=== PATIENT | male | born 1955 | race African-American/Black ===

== ENCOUNTER 2018-05-15 12:54 | Emergency (ER) | payer MEDICAID, OTHER ==
[~2018-05-15] VITALS: Ht 182.9 cm; Wt 59.0 kg
[2018-05-15] MEDS ORDERED: LORazepam Inj 2mg/ml 1ml IM ONE (13:30)
[2018-05-15 13:58] VITALS: BP 138/83
[2018-05-15 14:08] LABS: BASOPHILS % (AUTO) 1.8 % (0.0-2.0); EOSINOPHILS % (AUTO) 17.6 % (0.0-3.0); HEMATOCRIT 37.5 % (42.0-52.0); HEMOGLOBIN 11.9 G/DL (14.2-18.0); LYMPHOCYTES % (AUTO) 45.3 % (20.0-45.0); MEAN CORPUSCULAR VOLUME 101 FL (80-99); MONOCYTES % (AUTO) 9.2 % (1.0-10.0); NEUTROPHILS % (AUTO) 26.1 % (45.0-75.0); PLATELET COUNT 326 K/UL (150-450); RED BLOOD COUNT 3.73 M/UL (4.70-6.10); RED CELL DISTRIBUTION WIDTH 13.1 % (11.6-14.8); WHITE BLOOD COUNT 6.6 K/UL (4.8-10.8)
[2018-05-15 14:14] LABS: APPEARANCE,URINE CLEAR; BILIRUBIN, URINE NEGATIVE (NEGATIVE); GLUCOSE, URINE (UA) NEGATIVE (NEGATIVE); KETONES,URINE NEGATIVE (NEGATIVE); LEUKOCYTE ESTERASE ,URINE 3+ (NEGATIVE); NITRITE,URINE NEGATIVE (NEGATIVE); PH,URINE 6 (4.5-8.0); PROTEIN,URINE 3+ (NEGATIVE); UROBILINOGEN,URINE NORMAL MG/DL (0.0-1.0)
[2018-05-15 14:18] LABS: COLOR,URINE YELLOW
[2018-05-15 14:21] LABS: ANION GAP 6 mmol/L (5-15); BLOOD UREA NITROGEN 16 mg/dL (7-18); CALCIUM 9.6 MG/DL (8.5-10.1); CARBON DIOXIDE 27 MMOL/L (21-32); CHLORIDE 101 MMOL/L (98-107); CREATININE 0.7 MG/DL (0.55-1.30); POTASSIUM 5.6 MMOL/L (3.5-5.1); SODIUM 134 MMOL/L (136-145)
[2018-05-15 14:25] LABS: ALANINE AMINOTRANSFERASE 22 U/L (12-78); ALBUMIN 3.1 G/DL (3.4-5.0); ALBUMIN/GLOBULIN RATIO 0.5 (1.0-2.7); ALKALINE PHOSPHATASE 90 U/L (46-116); ASPARTATE AMINO TRANSFERASE 27 U/L (15-37); BILIRUBIN,TOTAL 0.5 MG/DL (0.2-1.0)
[2018-05-15] MEDS ORDERED: cefTRIAXone 1 GM in NS 55 ML IVPB ONE (14:30)
[2018-05-15 14:50] LABS: CKMB < 0.5 NG/ML (0.0-3.6); CREATINE KINASE 89 U/L (26-308)
--- NOTE | 2018-05-15 14:51 | Diagnostic Imaging Report ---
Indication: Chest pain Technique: One view of the chest Comparison: none Findings: Ovoid opacity left lung base likely reflects a a nipple shadow. The lungs and pleural spaces are clear except for some atelectasis or scarring right suprahilar region. The heart size is normal. Impression: No acute process Left basilar ovoid opacity, probably a nipple shadow. Recommend repeat with nipple markers. This was discussed with nurse practitioner Maryam Tavarez at the time of interpretation
--- NOTE | 2018-05-15 15:53 | Diagnostic Imaging Report ---
Indication: Chest pain, suspected nipple shadow on recent radiograph Technique: One view of the chest with nipple markers Comparison: 2 1/2 hours earlier Findings: Repeat imaging with nipple markers confirms that the previously demonstrated nodular opacity is in fact a nipple shadow. The remainder the exam is unremarkable Impression: Negative. Left basilar opacity confirmed to represent a nipple shadow
[2018-05-15 15:55] VITALS: BP 124/76
[2018-05-15] MEDS ORDERED: Vancomycin 1 GM in D5W 275 ML IVPB ONE (16:45)
--- NOTE | 2018-05-15 16:52 | Emergency Room Report ---
History of Present Illness General Chief Complaint: Behavioral Complaint Source: Patient (Maryam Tavarez) Present Illness HPI 62-year-old male presents to the emergency department brought by ambulance from detention facility for evaluation of changes in behavior. It was noted that the patient had multiple outbursts last week and today refused to talk to anyone. Patient has history of HIV patient is a poor historian and history of present illness and ROS are limited due to either poor patient cooperation or other underlying cause. Documentation that patient came with indicate HIV/AIDS , acute kidney injury and nonambulatory status is listed this patient is taking also poor eyedrop medications, dapsone, antiviral medication, iron, and pantoprazole. On exam patient is nonverbally cooperating and he communicates abdominal pain in the lower abdomen. (Maryam Tavarez) Allergies: Coded Allergies: No Known Allergies (Unverified , 05/15/18) Patient History Past Medical History: see triage record, unable to obtain, HIV Past Surgical History: unable to obtain Pertinent Family History: unable to obtain Reviewed Nursing Documentation: PMH: Agreed; PSxH: Agreed (Maryam Tavarez) Nursing Documentation-PMH Past Medical History: No History, Except For Hx Hypertension: Yes (Maryam Tavarez) Review of Systems All Other Systems: limited (Maryam Tavarez) Physical Exam Vital Signs Date Time Temp Pulse Resp B/P (MAP) Pulse Ox O2 Delivery O2 Flow Rate FiO2 05/15/18 12:51 98.0 78 18 138/83 100 Room Air 98.1 Sp02 EP Interpretation: reviewed, normal General Appearance: no apparent distress, alert, GCS 15, non-toxic, thin, Chronically Ill Head: normocephalic, atraumatic Eyes: bilateral eye normal inspection, bilateral eye PERRL, bilateral eye other - bilateral hazy appearance, cataracts ENT: hearing grossly normal Neck: normal inspection, no bony tend Respiratory: chest non-tender, lungs clear, normal breath sounds, no respiratory distress, no wheezing, speaking full sentences Cardiovascular #1: regular rate, rhythm, no edema, normal capillary refill Gastrointestinal: normal bowel sounds, soft, tenderness - suprapubic TTP- mild Musculoskeletal: back normal, normal range of motion, non-tender Neurologic: responsive - non verbal, motor strength/tone normal, grossly normal Psychiatric: judgement/insight normal Skin: normal color, no rash, warm/dry, well hydrated, diaphoresis (Maryam Tavarez) Medical Decision Making PA Attestation Dr. Paredes is my supervising Physician whom patient management has been discussed with. (Maryam Tavarez) Diagnostic Impression: Primary Impression: UTI (urinary tract infection) Qualified Codes: N30.01 - Acute cystitis with hematuria Additional Impressions: Behavioral change Elevated lactic acid level ER Course 62-year-old male presents to the emergency department brought by ambulance from detention facility for evaluation of changes in behavior. It was noted that the patient had multiple outbursts last week and today refused to talk to anyone. Patient has history of HIV patient is a poor historian and history of present illness and ROS are limited due to either poor patient cooperation or other underlying cause. Documentation that patient came with indicate HIV/AIDS , acute kidney injury and nonambulatory status is listed this patient is taking also poor eyedrop medications, dapsone, antiviral medication, iron, and pantoprazole. On exam patient is nonverbally cooperating and he communicates abdominal pain in the lower abdomen. Ddx considered but are not limited to dementia, sundowners, GI, side effect of medication, or alternate psychiatric cause Just to name a few Vital signs: are WNL, pt. is afebrile H&PE are most consistent with possible sepsis/ UTI ORDERS: - CMP, CBC: Anemia, elevated potassium, normal kidney and liver functions -Troponin: negative -CK: unremarkable - Lactic Acid 2.3, repeat 4.5 - Repeat BMP: normal potassium ED INTERVENTIONS: -1G Rocephin IV - NS Bolus -Vancomycin IV - Levaquin IV DISPOSITION: at this time pt. will be admitted to Dr. Dubon for UTI/Sepsis. Pt. will be transfered to [facility] Dr. Dubon agreed to admit the pt. and to continue pt. care management. Labs Test 05/15/18 12:50 05/15/18 13:45 05/15/18 15:32 05/15/18 17:40 Urine Color Yellow Urine Appearance Clear Urine pH 6 (4.5-8.0) Urine Specific [place] 1.020 (1.005-1.035) Urine Protein 3+ (NEGATIVE) Urine Glucose (UA) Negative (NEGATIVE) Urine Ketones Negative (NEGATIVE) Urine Occult Blood 4+ (NEGATIVE) Urine Nitrite Negative (NEGATIVE) Urine Bilirubin Negative (NEGATIVE) Urine Urobilinogen Normal MG/DL (0.0-1.0) Urine Leukocyte Esterase 3+ (NEGATIVE) Urine RBC 20-30 /HPF (0 - 0) Urine WBC 10-15 /HPF (0 - 0) Urine Squamous Epithelial Cells Occasional /LPF Urine Bacteria Few /HPF (NONE) Urine Mucus Moderate /LPF (NONE/OCC) White Blood Count 6.6 K/UL (4.8-10.8) Red Blood Count 3.73 M/UL (4.70-6.10) Hemoglobin 11.9 G/DL (14.2-18.0) Hematocrit 37.5 % (42.0-52.0) Mean Corpuscular Volume 101 FL (80-99) Mean Corpuscular Hemoglobin 31.9 PG (27.0-31.0) Mean Corpuscular Hemoglobin Concent 31.8 G/DL (32.0-36.0) Red Cell Distribution Width 13.1 % (11.6-14.8) Platelet Count 326 K/UL (150-450) Mean Platelet Volume 5.6 FL (6.5-10.1) Neutrophils (%) (Auto) 26.1 % (45.0-75.0) Lymphocytes (%) (Auto) 45.3 % (20.0-45.0) Monocytes (%) (Auto) 9.2 % (1.0-10.0) Eosinophils (%) (Auto) 17.6 % (0.0-3.0) Basophils (%) (Auto) 1.8 % (0.0-2.0) Total Bilirubin 0.5 MG/DL (0.2-1.0) Aspartate Amino Transf (AST/SGOT) 27 U/L (15-37) Alanine Aminotransferase (ALT/SGPT) 22 U/L (12-78) Alkaline Phosphatase 90 U/L (46-116) Total Creatine Kinase 89 U/L (26-308) Creatine Kinase MB < 0.5 NG/ML (0.0-3.6) Creatine Kinase MB Relative Index 0.5 Troponin I 0.000 ng/mL (0.000-0.056) Total Protein 9.7 G/DL (6.4-8.2) Albumin 3.1 G/DL (3.4-5.0) Globulin 6.6 g/dL Albumin/Globulin Ratio 0.5 (1.0-2.7) Lactic Acid Level 4.50 mmol/L (0.66-2.22) Sodium Level 137 MMOL/L (136-145) Potassium Level 3.8 MMOL/L (3.5-5.1) Chloride Level 104 MMOL/L (98-107) Carbon Dioxide Level 27 MMOL/L (21-32) Anion Gap 6 mmol/L (5-15) Blood Urea Nitrogen 16 mg/dL (7-18) Creatinine 0.7 MG/DL (0.55-1.30) Estimat Glomerular Filtration Rate > 60 mL/min (>60) Glucose Level 92 MG/DL (74-106) Calcium Level 8.8 MG/DL (8.5-10.1) (Maryam Tavarez) ER Course I examined this patient and agree with the above assessment and treatment plan. I discussed the patient with Dr. Dubon who accepted the patient in transfer to [facility]. (Tej Tineo M.D.) EKG Diagnostic Results EP Interpretation: Dr.. Tineo Rate: normal - 85 bpm Rhythm: NSR ST Segments: no acute changes ASA given to the pt in ED: No PA Scribe Text This Interpretation was scribed by JAMMIE Tavarez. (Maryam Tavarez) Chest X-Ray Diagnostic Results Chest X-Ray Diagnostic Results : Chest X-Ray Ordered: Yes # of Views/Limited/Complete: 1 View Indication: Chest Pain EP Interpretation: Yes PA Xray: Interpretation reviewed, by supervising MD, and agrees with findings. Interpretation: no consolidation, no effusion, no pneumothorax, no acute cardiopulmonary disease Impression: No acute disease Electronically Signed by: Maryam Tavarez PA-C (Maryam Tavarez) Last Vital Signs Date Time Temp Pulse Resp B/P (MAP) Pulse Ox O2 Delivery O2 Flow Rate FiO2 05/15/18 15:55 98.6 82 16 124/76 98 Room Air 98.6 (Maryam Tavarez) Last Vital Signs Date Time Temp Pulse Resp B/P (MAP) Pulse Ox O2 Delivery O2 Flow Rate FiO2 05/15/18 19:30 76 18 108/64 99 05/15/18 17:46 98.8 Room Air 98.8 Status: improved (Tej Tineo M.D.) Disposition: XFER [facility] HOSP Condition: Serious Referrals: [facility]REFERRED [facility],REFERRING (PCP) Maryam Tavarez May 15, 2018 16:52 Tej Tineo M.D. May 16, 2018 16:22
[2018-05-15 17:46] VITALS: BP 132/68
[2018-05-15 18:10] LABS: ANION GAP 6 mmol/L (5-15); BLOOD UREA NITROGEN 16 mg/dL (7-18); CALCIUM 8.8 MG/DL (8.5-10.1); CARBON DIOXIDE 27 MMOL/L (21-32); CHLORIDE 104 MMOL/L (98-107); CREATININE 0.7 MG/DL (0.55-1.30); POTASSIUM 3.8 MMOL/L (3.5-5.1); SODIUM 137 MMOL/L (136-145)
[2018-05-15 19:30] VITALS: BP 108/64
--- NOTE | 2018-05-17 18:42 | Cardiology Report ---
APPROVED REPORT EKG Measurement Heart [id number] Normal sinus rhythm Septal infarct, age undetermined Abnormal ECG
== END 2018-05-15 19:30 | disposition short-term general hospital (02) ==
LOC: EDBD 12:54 → EMR 13:25
DX: N30.01 Acute cystitis with hematuria (principal); I10 Essential (primary) hypertension; R46.89 Other symptoms and signs involving appearance and behavior; R74.0 Nonspecific elevation of levels of transaminase and lactic acid dehydrogenase [LDH]
CPT/HCPCS: 36415; 71045; 80048; 80053; 81003; 82550; 82553; 83605; 84484; 85025; 87040; 87081; 87086; 93005; 96361; 96365; 96367; 96368; 96372; 99285; J0696; J1956; J3370